=== PATIENT | female | born 2000 | race Caucasian/White ===

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

== ENCOUNTER 2023-08-27 14:44 | Emergency (ER) | payer SELFPAY ==
[~2023-08-27] VITALS: Ht 167.8 cm; Wt 77.4 kg
[2023-08-27 14:51] VITALS: BP 156/97
[2023-08-27] MEDS ORDERED: KETOROLAC INJ 30 MG/ML VIAL IVP ONE (15:15)
[2023-08-27] MEDS ORDERED: KETOROLAC INJ 30 MG/ML VIAL IM ONE (15:30)
[2023-08-27] MEDS ORDERED: NAPR-915 PO (15:41)
--- NOTE | 2023-08-27 15:41 | ED General ---
General Chief Complaint: General Problems/Pain Stated Complaint: MUSCLE PAIN RIGHT CHEST AREA Nursing Triage Note: PATIENT C/O Rt. CHEST PAIN THAT STARTED YESTERDAY AFTER LIFTING WEIGHTS YESTERDAY. PATIENT STATES SHE INCREASED THE WEIGHT SHE USED AND STATES SHE GENERALLY DOES NOT DO THIS EXERCISE. PATIENT STATES SHE HAS PAIN IF SHE PUSHED IN THAT AREA, TAKES A DEEP BREATH, AND BEND OVER OR GO BACK. PATIENT STATES SHE ICED AREA THIS AM, BUT DENIES TAKING ANYTHING AT HOME FOR THE PAIN. Source of Information: Patient Exam Limitations: No Limitations (PATSY STARR) History of Present Illness Date Seen by Provider: Aug 27, 2023 Time Seen by Provider: 15:38 Initial Comments Patient is a 22-year-old female who presents ED with right sided anterior chest wall pain. She states yesterday she was doing lap pull downs. She had a more weight felt a sharp pain to the right side of her chest when she came down with the bar. She states she did have some discomfort yesterday but pain was worse this morning. Pain is worse with getting up or moving the chest. She has been applying ice. Denies taking thing for pain. She denies of any shortness of breath but has pain with any movement or deep inspiration. She denies history of heart disease. She denies any nausea, vomit, diarrhea fever, chills, headache or dizziness. (PATSY STARR) Allergies and Home Medications Allergies Coded Allergies: Sulfa (Sulfonamide Antibiotics) (Verified Allergy, Unknown, 07/31/13) dapsone (Verified Allergy, Unknown, 07/31/13) Patient Home Medication List Home Medication List Reviewed: Yes (PATSY STARR) Albuterol Sulfate (Proventil 2.5 Mg/3 Ml Ns) 2.5 Mg/3 Ml Solution, 2.5 MG IH Q4H PRN, (Reported) Entered as Reported by: CONCHA SAINI on 07/31/13 1047 Ciprofloxacin HCl (Cipro) 500 Mg Tablet, 500 MG PO BID Prescribed by: KASHIF STEINER on 11/30/17 1204 Hydrocodone Bit/Acetaminophen (Hydrocodon-Acetaminophen 5-500) 1 Each Tablet, 1- 2 TAB PO Q6H PRN, (Reported) Entered as Reported by: CONCHA SAINI on 07/31/13 1050 Linezolid (Zyvox) 600 Mg Tablet, 600 MG PO BID, (Reported) Entered as Reported by: JAMIN MARLEY on 08/01/13 1840 Loratadine (Loratadine) 10 Mg Tablet, 10 MG PO BID, (Reported) Entered as Reported by: CONCHA SAINI on 07/31/13 1043 Naproxen (Naproxen) 500 Mg Tablet, 500 MG PO Q12H Prescribed by: TAYLOR LEE on 08/27/23 1541 Ondansetron (Zofran Odt) 8 Mg Tab.rapdis, 8 MG PO Q6H Prescribed by: KASHIF STEINER on 11/30/17 1204 Ondansetron Hcl (Zofran Oral Dissolve) 4 Mg Tab, 4 MG PO Q8H PRN, (Reported) Entered as Reported by: JAMIN MARLEY on 08/01/13 1840 Review of Systems Review of Systems Constitutional: No chills, No diaphoresis EENTM: No hearing loss, No ear pain, No blurred vision Respiratory: No dyspnea on exertion, No short of breath Cardiovascular: chest pain; No edema, No Hx of Intervention, No palpitations Gastrointestinal: No abdominal pain, No diarrhea, No nausea, No vomiting Genitourinary: No decreased output, No discharge Musculoskeletal: No back pain, No joint pain, No joint swelling; muscle pain, muscle stiffness Skin: No change in color, No change in hair/nails (PATSY STARR) All Other Systems Reviewed Negative Unless Noted: Yes (PATSY STARR) Past Nboclsn-Vtpduz-Mqrwoo Hx Patient Social History Tobacco Use?: Yes Tobacco type used: Cigarettes Smoking Status: Current Someday Smoker Use of E-Cig and/or Vaping dev: Yes E-Cig or Vaping type used: Nicotine Use of E-Cig and/or Vaping Francisco Javier: Current Someday User Substance use?: Yes Substance type: Marijuana Substance frequency: Once in a while Alcohol Use?: Yes Alcohol Frequency: Once in a while Pt feels they are or have been: No (PATSY STARR) Immunizations Up To Date Tetanus Booster (TDap): Less than 5yrs PED Vaccines UTD: Yes Influenza Vaccine Up-to-Date: No; Not Current (PATSY STARR) Seasonal Allergies Seasonal Allergies: No (PATSY STARR) Past Medical History Surgeries: No Respiratory: Yes (winter time when cold outside) Asthma Cardiac: No Neurological: No Last Menstrual Period: Aug 01, 2023 Reproductive Disorders: No Female Reproductive Disorders: Denies Sexually Transmitted Disease: No HIV/AIDS: No Gastrointestinal: No Musculoskeletal: No Endocrine: No Cancer: No Psychosocial: No Integumentary: Yes ([facility]) Blood Disorders: No Adverse Reaction/Blood Tranf: No (PATSY STARR) Family Medical History No Pertinent Family Hx Younger brother had empyema about 4 years ago. (PATSY STARR) Physical Exam Vital Signs Vital Signs - First Documented 08/27/23 14:51 Temp 36.9 Pulse 93 Resp 12 B/P (MAP) 156/97 (116) O2 Delivery Room Air (DRE JOYNER MD) Vital Signs Capillary Refill : (PATSY STARR) Height, Weight, BMI Height: 5'7.00" Weight: 170lbs. 2.0oz. [id number]; 27.00 BMI Method:Stated General Appearance: No Apparent Distress, WD/WN Eyes: Bilateral Eye Normal Inspection, Bilateral Eye PERRL, Bilateral Eye EOMI HEENT: PERRL/EOMI, TMs Normal, Normal ENT Inspection, Pharynx Normal Neck: Full Range of Motion, Normal Inspection, Non Tender, Supple Respiratory: Lungs Clear, Normal Breath Sounds, No Accessory Muscle Use, No Respiratory Distress, Other (Right anterior lateral chest wall tenderness. No crepitus or step-off. Lung sounds clear bilateral) Cardiovascular: Regular Rate, Rhythm, No Edema, No Gallop, No JVD Gastrointestinal: Normal Bowel Sounds, No Pulsatile Mass, Non Tender Back: Normal Inspection, No CVA Tenderness Extremity: Normal Capillary Refill, Normal Inspection, Normal Range of Motion, Non Tender Neurologic/Psychiatric: Alert, Oriented x3, No Motor/Sensory Deficits, Normal Mood/Affect, script manager II-XII Norm as Tested Skin: Normal Color, Warm/Dry (PATSY STARR) Progress/Results/Core Measures Suspected Sepsis SIRS Temperature: Pulse: 93 Respiratory Rate: 12 Blood Pressure 156 /97 Mean: 116 (PATSY STARR) Results/Orders Medications Given in ED Current Medications Medications Dose Ordered Sig/Fatuma Route Start Time Stop Time Status Last Admin Dose Admin Ketorolac Tromethamine 30 mg ONCE ONCE IM 08/27/23 15:30 08/27/23 15:31 DC 08/27/23 15:25 30 MG (DRE JOYNER MD) Vital Signs/I&O 08/27/23 14:51 Temp 36.9 Pulse 93 Resp 12 B/P (MAP) 156/97 (116) O2 Delivery Room Air (DRE JOYNER MD) Vital Signs/I&O Capillary Refill : (PATSY STARR) Blood Pressure Mean: 116 Departure Communication (PCP) Patient presents ED with right lateral anterior chest wall pain. This occurred after performing LAT pull downs yesterday in the gym. She states she increased the weight. On exam she does have tenderness to palpate along the anterior lateral right-sided chest. Normal lung throughout. No known cardiac history. Severe tenderness on palpation. This appears to be more muscular pain likely from overuse versus muscle strain. She received Toradol. Will discharge with anti-inflammatories. Recommend ice stretching. Avoid LAT pull downs, bench press for the next few weeks. Recommend stretching. If any increasing pain, shortness of breath, cough to return back to ED. Vital signs stable. She has no other complaints at this time. (PATSY STARR) Impression Primary Impression: Chest wall pain Disposition: HOME, SELF-CARE Condition: Stable Departure-Patient Inst. Decision time for Depature: 15:41 (PATSY STARR) Referrals: [facility] (PCP/Family) Primary Care Physician Patient Instructions: Costochondritis Add. Discharge Instructions: Recommend rest, stretching. Avoid any bench press, LAT pull downs for the next 2 weeks. Ice heat anti-inflammatories for pain All discharge instructions reviewed with patient and/or family. Voiced understanding. Scripts Naproxen (Naproxen) 500 Mg Tablet 500 MG PO Q12H, #20 TAB Prov: PATSY STARR 08/27/23 ATTENDING PHYSICIAN NOTE: I was physically present as attending physician in the emergency department during the care of this patient, but I was not directly involved in the decision making or delivery of care for this patient. (DRE JOYNER MD) PATSY STARR Aug 27, 2023 15:41 DRE JOYNER MD Aug 27, 2023 19:24
== END 2023-08-27 15:46 | disposition home or self-care (01) ==
LOC: EDUNIT# 14:44 → ER 14:49
DX: R07.89 Other chest pain (principal); F17.210 Nicotine dependence, cigarettes, uncomplicated; F17.290 Nicotine dependence, other tobacco product, uncomplicated; X50.0XXA Overexertion from strenuous movement or load, initial encounter
CPT/HCPCS: 99284